=== PATIENT | male | born 1960 | race Caucasian/White ===

== ENCOUNTER → 2016-11-22 | Outpatient (CLI) | payer OTHER ==
[~2016-11-22] MED LIST: IBP200T PO
--- NOTE | 2016-11-22 16:45 | Diagnostic Imaging Report ---
INDICATION: Preop. FINDINGS: Radiopacities projecting over the right clavicle are presumed post surgical or calcifications. There is air trapping and COPD. There is no evidence for pneumonia. No failure pattern, effusion, or pneumothorax. IMPRESSION: Clear hyperexpanded lungs with COPD. No acute abnormality is identified. Dictated by: Dictated on workstation # [id number]
== END ==
LOC: RAD 16:07
PROVIDERS: ATTEND Family Medicine
DX: Z01.818 Encounter for other preprocedural examination (principal); J44.9 Chronic obstructive pulmonary disease, unspecified
CPT/HCPCS: 71020